=== PATIENT | female | born 2000 | race Caucasian/White ===

== ENCOUNTER 2023-03-14 09:35 | Emergency (ER) | payer OTHER ==
[~2023-03-14] VITALS: Ht 160 cm; Wt 52.2 kg
[2023-03-14] MEDS ORDERED: IBUPROFEN 800 MG TABLET PO ONE (10:30)
[2023-03-14] MEDS ORDERED: IBUPROFEN 800 MG TABLET ONE (10:31)
[2023-03-14 10:46] LABS: EOSINOPHILS # (AUTO) 1.3 K/uL (0.0-0.7); EOSINOPHILS % (AUTO) 15.6 % (0.0-7.0); HEMATOCRIT 37.4 % (31.2-41.9); HEMOGLOBIN 12.3 g/dL (10.9-14.3); LYMPHOCYTES # (AUTO) 1.6 K/uL (0.8-4.8); LYMPHOCYTES % (AUTO) 19.2 % (20.5-74.5); MEAN CORPUSCULAR HEMOGLOBIN 30.3 uug (24.7-32.8); MEAN CORPUSCULAR HGB CONC 33 g/dL (32.3-35.6); MONOCYTES # (AUTO) 0.2 K/uL (0.1-1.30); MONOCYTES % (AUTO) 2.4 % (0-11); NEUTROPHILS # (AUTO) 5.1 K/uL (1.8-8.9); NEUTROPHILS % (AUTO) 62.8 % (31.5-64.5); PLATELET COUNT (AUTO) 213 K/uL (179-408); RED BLOOD CELL COUNT(AUTO) 4.06 MIL/uL (3.63-4.92); RED CELL DISTRIBUTION WIDTH 13.1 % (12.3-17.7); WHITE BLOOD COUNT (AUTO) 8.1 K/uL (3.8-11.8)
[2023-03-14 11:09] LABS: DIFFERENTIAL COMMENT 1
[2023-03-14 11:12] LABS: CALCIUM 8.7 mg/dL (8.5-10.1); CARBON DIOXIDE 25 mmol/L (21-32); CHLORIDE 109 mmol/L (98-107); CREATININE 0.6 mg/dL (0.6-1.3); GLUCOSE 98 mg/dL (74-106); SODIUM SERUM 141 mmol/L (136-145); UREA NITROGEN, BLOOD 9 mg/dL (7-18)
[2023-03-14 11:19] LABS: PREGNANCY TEST SERUM QUAN < 1 miul/L (0-6)
[2023-03-14 11:25] LABS: ALANINE AMINOTRANSFERASE 17 U/L (14-59); ALBUMIN 3.9 g/dL (3.4-5.0); ALKALINE PHOSPHATASE 74 U/L (50-136); ASPARTATE AMINOTRANSFERASE 15 U/L (15-37); BILIRUBIN,DIRECT 0.2 mg/dL (0.0-0.2); BILIRUBIN,TOTAL 0.6 mg/dL (0.2-1.0); TOTAL PROTEIN, SERUM 7.2 g/dL (6.4-8.2)
[2023-03-14] MEDS ORDERED: IBUP-1957 PO (11:37)
[2023-03-14 11:45] VITALS: BP 118/80; TEMP 98; O2SAT 99
== END 2023-03-14 11:46 | disposition home or self-care (01) ==
LOC: ER 09:35
DX: N94.6 Dysmenorrhea, unspecified (principal); R10.2 Pelvic and perineal pain
CPT/HCPCS: 76856; 85025; 85730; A4606; A4663